=== PATIENT | male | born 1990 | race Caucasian/White ===

== ENCOUNTER 2018-05-09 20:45 | Emergency (ER) | payer SELFPAY ==
[2018-05-09 21:06] VITALS: BP 129/73
[2018-05-09 21:19] LABS: ABSOLUTE BASOPHILS # (AUTO) 0.1 10^3/uL (0.0-0.2); ABSOLUTE EOSINOPHILS # (AUTO) 0.3 10^3/uL (0.0-0.6); ABSOLUTE LYMPHOCYTES (AUTO) 3.2 10^3/uL (0.5-4.7); ABSOLUTE MONOCYTES (AUTO) 0.8 10^3/uL (0.1-1.4); BASOPHILS % (AUTO) 0.5 % (0-2); EOSINOPHILS % (AUTO) 2.1 % (0-6); HEMATOCRIT 41.2 % (37.9-51.0); HEMOGLOBIN 14.2 g/dL (13.5-17.0); LYMPHOCYTES % (AUTO) 26.3 % (13-45); MEAN CORPUSCULAR HEMOGLOBIN 29.5 pg (27.0-33.4); MEAN CORPUSCULAR HGB CONC 34.4 g/dL (32.0-36.0); MEAN CORPUSCULAR VOLUME 86 fl (80-97); MONOCYTES % (AUTO) 6.6 % (3-13); PLATELET COUNT 259 10^3/uL (150-450); RED BLOOD COUNT 4.81 10^6/uL (4.35-5.55); RED CELL DISTRIBUTION WIDTH 13.1 % (11.5-14.0); SEGMENTED NEUTROPHILS % (AUTO) 64.5 % (42-78); TOTAL CELLS COUNTED % (AUTO) 100 %; WHITE BLOOD COUNT 12.4 10^3/uL (4.0-10.5)
[2018-05-09 21:29] LABS: ALANINE AMINOTRANSFERASE 28 U/L (21-72); ALBUMIN 3.9 g/dL (3.5-5.0); ALKALINE PHOSPHATASE 71 U/L (38-126); ANION GAP 10 (5-19); ASPARTATE AMINO TRANSFERASE 25 U/L (17-59); BILIRUBIN,DIRECT 0.2 mg/dL (0.0-0.4); BILIRUBIN,TOTAL 0.3 mg/dL (0.2-1.3); BLOOD UREA NITROGEN 15 mg/dL (7-20); CALCIUM 9.6 mg/dL (8.4-10.2); CARBON DIOXIDE 29 mmol/L (22-30); CHLORIDE 101 mmol/L (98-107); GLUCOSE 96 mg/dL (75-110); LIPASE 169.8 U/L (23-300); POTASSIUM 4.1 mmol/L (3.6-5.0); SODIUM 139.7 mmol/L (137-145); TOTAL PROTEIN 6.6 g/dL (6.3-8.2)
[2018-05-09] MEDS ORDERED: LIDOCAINE 1% INJ-PF (10 MG/ML) 30 ML SDV INJ ONE (21:47)
--- NOTE | 2018-05-09 21:48 | ER Document Report ---
ED Skin Rash/Insect Bite/Abscs - General Mode of Arrival: Ambulatory Information source: Patient <GIANCARLOMARBIN - Last Filed: 05/09/18 22:25> <MARK MIRAMONTES - Last Filed: 05/10/18 00:35> <MIMI ALMONTE - Last Filed: 05/10/18 03:19> - General Chief Complaint: Abscess Stated Complaint: ABDOMINAL PAIN Time Seen by Provider: 05/09/18 21:31 Notes: 28-year-old male who presents to the emergency department today with complaints of an abscess to his upper abdomen. Patient states he has had this abscess for approximately 3 days. Patient states he "popped it" and had some pus drain out of the area when he popped it. Patient states his dad and grandpa have a history of MRSA. Of note, the patient does shave his abdomen but he states he has been doing this for "a very long time". Patient denies any usage of new products with shaving. Patient states he did not change any blades recently because he uses an electric razor. (MARBIN MONDRAGON) Past Medical History - General Information source: Patient - Social History Smoking Status: Current Every Day Smoker Cigarette use (# per day): Yes Frequency of alcohol use: None Drug Abuse: Marijuana Lives with: Family Family History: Reviewed & Not Pertinent - Medical History Medical History: Negative Surgical Hx: Negative <MARBIN MONDRAGON - Last Filed: 05/09/18 22:25> Review of Systems - Review of Systems Constitutional: denies: Fever EENT: No symptoms reported Cardiovascular: No symptoms reported Respiratory: No symptoms reported Gastrointestinal: No symptoms reported Genitourinary: No symptoms reported Male Genitourinary: No symptoms reported Musculoskeletal: No symptoms reported Skin: See HPI, Lesions - upper abdomen Hematologic/Lymphatic: No symptoms reported Neurological/Psychological: No symptoms reported -: Yes All other systems reviewed and negative <MARBIN MONDRAGON - Last Filed: 05/09/18 22:25> Physical Exam <MARBIN MONDRAGON - Last Filed: 05/09/18 22:25> <MARK MIRAMONTES - Last Filed: 05/10/18 00:35> <IMMI ALMONTE - Last Filed: 05/10/18 03:19> - Vital signs Vitals: Temp Pulse BP Pulse Ox 98.8 F 99 129/73 H 98 05/09/18 21:04 05/09/18 21:04 05/09/18 21:04 05/09/18 21:04 - Notes Notes: PHYSICAL EXAM GENERAL: Alert, interacts well. No acute distress. HEAD: Normocephalic, atraumatic. EYES: Pupils equal, round, and reactive to light. Extraocular movements intact. ENT: Oral mucosa moist, tongue midline. NECK: Full range of motion. Supple. Trachea midline. LUNGS: No respiratory distress. ABDOMEN: See skin exam EXTREMITIES: Moves all 4 extremities spontaneously. NEUROLOGICAL: Alert and oriented x3. Normal speech. PSYCH: Normal affect, normal mood. SKIN: Warm and dry. 3cm area of erythema superior to the umbilicus with 1cm of induration. Purulent drainage expressed. (MARBIN MONDRAGON) Course - Laboratory Result Diagrams: 05/09/18 21:02 05/09/18 21:02 <MARBIN MONDRAGON - Last Filed: 05/09/18 22:25> - Laboratory Result Diagrams: 05/09/18 21:02 05/09/18 21:02 <MARK MIRAMONTES - Last Filed: 05/10/18 00:35> - Laboratory Result Diagrams: 05/09/18 21:02 05/09/18 21:02 <MIMI ALMONTE - Last Filed: 05/10/18 03:19> - Re-evaluation Re-evalutation: 05/10/18 00:21 CBC shows leukocytosis at 12.4 otherwise unremarkable, CMP unremarkable, lipase normal, urinalysis unremarkable. Wound culture was sent from the abdominal abscess. Bedside ultrasound shows superficial abdominal abscess that does not track into the musculature. KATHY Marion locally anesthetized the area, incised it and irrigated it. Patient does not need packing. Patient will now be discharged home with Bactrim and Keflex by mouth and instructions on warm compresses. (MIMI ALMONTE) - Vital Signs Vital signs: Temp Pulse Resp BP Pulse Ox 98.8 F 99 129/73 H 98 05/09/18 21:04 05/09/18 21:04 05/09/18 21:04 05/09/18 21:04 - Laboratory Laboratory results interpreted by me: 05/09/18 21:02 WBC 12.4 H Procedures <MARBIN MONDRAGON - Last Filed: 05/09/18 22:25> - Incision and Drainage Mid- Abdomen Type: Complex, Single Anesthetic type: 1% Lidocaine mL's of anesthetic: 5 Blade size: 11 I&D procedure: Shurclens applied Incision Method: Incision made by scalpel Amount/type of drainage: 5 mL/purulent <MARK MIRAMONTES - Last Filed: 05/10/18 00:35> <MIMI ALMONTE - Last Filed: 05/10/18 03:19> - Incision and Drainage Mid- Abdomen Notes: 05/10/18 00:31 2 cm horizontal incision made with #11 scalpel. Expressed some purulent fluid, attempted to explore abscess with pickups but patient did not tolerate it. Irrigation performed with 18-gauge catheter and 20 mL syringe. Approximately 120 mL normal saline used to irrigate. 05/10/18 00:34 05/10/18 00:35 (MARK MIRAMONTES) Discharge <MARBIN MONDRAGON - Last Filed: 05/09/18 22:25> <MARK MIRAMONTES - Last Filed: 05/10/18 00:35> <MIMI ALMONTE - Last Filed: 05/10/18 03:19> - Discharge Clinical Impression: Abscess of skin of abdomen Condition: Stable Disposition: HOME, SELF-CARE Instructions: Post Incision and Drainage Prescriptions: Cephalexin Monohydrate [Keflex 500 mg Capsule] 1,000 mg PO BID #28 capsule Sulfamethoxazole/Trimethoprim [Bactrim Ds Tablet] 1 each PO BID #14 tablet Referrals: MESSI SWANN DO [NO LOCAL MD] - Follow up as needed Scribe Attestation: 05/10/18 03:18 I personally performed the services described in the documentation, reviewed and edited the documentation which was dictated to the scribe in my presence, and it accurately records my words and actions. (MIMI ALMONTE) Scribe Documentation - Scribe Written by Scribe:: Priscilla Mcleod, 05/09/2018, [id number] acting as scribe for :: Meagan <MARBIN MONDRAGON - Last Filed: 05/09/18 22:25>
[2018-05-09 22:50] LABS: APPEARANCE,URINE CLEAR; BILIRUBIN,URINE NEGATIVE (NEGATIVE); COLOR,URINE YELLOW; GLUCOSE, URINE NEGATIVE (NEGATIVE); KETONES,URINE NEGATIVE (NEGATIVE); LEUKOCYTE ESTERASE,URINE NEGATIVE (NEGATIVE); NITRITE,URINE NEGATIVE (NEGATIVE); PROTEIN,URINE NEGATIVE (NEGATIVE); URINE SPECIFIC GRAVITY 1.026; UROBILINOGEN,URINE NEGATIVE mg/dL (<2.0)
[2018-05-09] MEDS ORDERED: KETOROLAC TROMETHAMINE 60 MG/2 ML SDV IV ONE (23:30)
[2018-05-10] MEDS ORDERED: SULFAMETHOXAZOLE/TRIMETHOPRIM 800-160 MG TABLET PO ONE (00:27)
[2018-05-10] MEDS ORDERED: CEPHALEXIN 500 MG CAPSULE PO ONE (00:27)
== END 2018-05-10 01:05 | disposition home or self-care (01) ==
LOC: ER 20:45
DX: L02.211 Cutaneous abscess of abdominal wall (principal); F17.210 Nicotine dependence, cigarettes, uncomplicated
CPT/HCPCS: 99284; 96374; 36415; 87070; 87205; 83690; 85025; 87077; 80053; 81001; 87186; 10061; J1885; J3490